=== PATIENT | female | born 2000 | race African-American/Black ===

== ENCOUNTER 2021-06-17 07:01 | Emergency (ER) | payer MEDICAID, OTHER ==
[~2021-06-17] VITALS: Ht 177.8 cm; Wt 68.0 kg
[2021-06-17 08:00] LABS: BASOPHILS % 0.5 % (0.0-2.0); EOSINOPHILS % 1.9 % (0.0-5.0); LYMPHOCYTES % 33.6 % (20.0-50.0); MEAN CORPUSCULAR HEMOGLOBIN 29.4 pg (28.0-32.0); MEAN CORPUSCULAR VOLUME 88.3 fL (81.0-99.0); MEAN PLATELET VOLUME 6.7 fl (7.4-10.4); MONOCYTES % 7.6 % (2.0-8.0); NEUTROPHILS % 56.4 % (40.0-76.0); PLATELET 310 x1000/uL (130-400); RED BLOOD CELL COUNT 4.41 mill/uL (4.2-5.4); RED CELL DISTRIBUTION WIDTH 14.8 % (11.6-14.6)
[2021-06-17 08:06] LABS: CHLORIDE 109 mEq/L (98-107)
[2021-06-17 08:19] LABS: HCG SCREEN NEGATIVE
[2021-06-17 09:11] VITALS: BP 106/54
== END 2021-06-17 09:14 | disposition home or self-care (01) ==
LOC: ER 07:01
DX: R55 Syncope and collapse (principal)
CPT/HCPCS: 36415; 71045; 80053; 83880; 84484; 84703; 85025; 93005; 99285